=== PATIENT | male | born 1990 | race Caucasian/White ===

== ENCOUNTER → 2020-10-24 15:54 | Outpatient (CLI) | payer SELFPAY ==
--- NOTE | 2020-10-24 16:00 | RAD_ITS ---
STUDY: X-RAY - ORBITS REASON FOR EXAM: Male, 29 years old. This study is being performed as a clearance examination for exclusion of orbital metal, prior to the performance of an MRI examination. TECHNIQUE: 2 view(s) of the orbits were obtained. COMPARISON: None. FINDINGS: Normal bilateral orbits without a metallic orbital foreign body. Normal visualized facial bones. Normal paranasal sinuses. The soft tissue structures are unremarkable. RAD/Orbits for Foreign Body IMPRESSION: No demonstrated metallic orbital foreign body. The patient is cleared for an MRI examination. Electronically Signed: Krishna Dasilva MD at 16:37 EDT Tel , Service support ,
--- NOTE | 2020-10-24 16:15 | MRI_ITS ---
STUDY: MRI LUMBAR SPINE WITHOUT CONTRAST REASON FOR EXAM: Male, 29 years old. LOW BACK PAIN TECHNIQUE: Standardized fat and water weighted pulse sequences were obtained in the sagittal and axial planes. COMPARISON: None FINDINGS: T12-L1: Normal endplates. Normal disc height, hydration and morphology. Normal bilateral facet joints. Normal central canal and bilateral lateral recesses. Normal bilateral intervertebral neural foramina. Normal lumbar lordosis. There is no substantial scoliosis. Normal conus medullaris that terminates at T12-L1 L1-2: Normal endplates. Normal disc height, hydration and morphology. Normal bilateral facet joints. Normal central canal and bilateral lateral recesses. Normal bilateral intervertebral neural foramina. L2-3: Normal endplates. Normal disc height, hydration and morphology. Normal bilateral facet joints. Normal central canal and bilateral lateral recesses. Normal bilateral intervertebral neural foramina. L3-4: Normal endplates. Normal disc height, hydration and morphology. Normal bilateral facet joints. Normal central canal and bilateral lateral recesses. Normal bilateral intervertebral neural foramina. L4-5: Normal endplates. Normal disc height, desiccation mild annular bulge with small central annular tear and disc protrusion.. Normal bilateral facet joints. Mild narrowing of the central canal. Normal bilateral lateral recesses. Mild bilateral neuroforaminal encroachment L5-S1: Grade 1 retrolisthesis. Narrowed disc space with degenerative endplate changes. Desiccation of disc and mild bulging disc osteophyte complex. Minor facet arthropathy. Mild narrowing of the central canal . Moderate bilateral recess and neuroforaminal stenosis exaggerated by shortened pedicles. Normal visualized sacral ala. Normal visualized paraspinous soft tissue structures. MRI/Spine Lumbar (Routine) IMPRESSION: No evidence for acute fracture or other significant bony pathology. Mild spinal stenosis at L4-5 secondary to mild annular bulge with small central annular tear and disc protrusion. More pronounced spinal stenosis at L5-S1 secondary to retrolisthesis with bulging disc osteophyte complex and minor facet arthropathy exaggerated by shortened pedicles. Electronically Signed: Scott Meehan MD at 17:41 EDT , Service support ,
== END ==
DX: M99.03 Segmental and somatic dysfunction of lumbar region (principal); M54.31 Sciatica, right side; M54.32 Sciatica, left side
CPT/HCPCS: 70030; 72148